=== PATIENT | female | born 1950 | race Hispanic/Latino ===

== ENCOUNTER 2019-11-02 20:48 | Inpatient (IN) | payer MEDICARE ==
[~2019-11-02] VITALS: Ht 170.2 cm; Wt 50.3 kg
[2019-11-02] MEDS ORDERED: SODIUM CHLORIDE 0.9% 1000ML 1,000 ML IV STA (20:54)
[2019-11-02 21:16] LABS: BASOPHILS % 0.3 % (0.0-1.0); EOSINOPHILS % 0.2 % (0.0-6.0); HEMATOCRIT 49.1 % (34.2-44.1); HEMOGLOBIN 16.8 g/dL (12.0-16.0); LYMPHOCYTES # (AUTO) 2.6 (1.0-3.2); LYMPHOCYTES % 20.9 % (18.0-39.1); MEAN CORPUSCULAR HEMOGLOBIN 30.1 pg (28-32); MEAN CORPUSCULAR HGB CONC 34.2 g/dL (31-35); MONOCYTES # (AUTO) 0.7 (0.2-0.8); MONOCYTES % 5.7 % (4.4-11.3); NEUTROPHILS % 72.5 % (38.7-80.0); PLATELET COUNT 189 x10e3/uL (140-360); RED BLOOD COUNT 5.58 x10e6/uL (3.6-5.1); RED CELL DISTRIBUTION WIDTH 12.6 % (11.7-14.4)
[2019-11-02 21:34] LABS: ALBUMIN 3.9 g/dL (3.5-5.0); ALBUMIN/GLOBULIN RATIO 1.3 (0.8-2.0); ANION GAP 20.3 mmol/L (8-16); CALCIUM 9.4 mg/dL (8.4-10.2); CREATININE, SERUM 3.14 mg/dL (0.57-1.11); POTASSIUM 4.3 mmol/L (3.5-5.1)
[2019-11-02 21:41] LABS: B-TYPE NATRIURETIC PEPTIDE2 57.4 pg/mL (0-100); CREATINE KINASE MB 3.1 ng/mL (0-5.0)
--- NOTE | 2019-11-02 21:45 | Diagnostic Imaging Report ---
EXAMINATION: CHEST SINGLE (PORTABLE) INDICATION: Hypotension, weakness. COMPARISON: None FINDINGS: TUBES and LINES: None. LUNGS: Hyperinflated lungs. Biapical pleural-parenchymal opacity with mild bronchiectasis. Focal left upper lung opacity. Patchy left lower lung opacity. PLEURA: No pleural effusion or pneumothorax. HEART AND MEDIASTINUM: The cardiomediastinal silhouette is unremarkable. There are atherosclerotic calcifications within the aorta. Coronary atherosclerosis.Status post CABG. BONES AND SOFT TISSUES: No acute osseous lesion. Soft tissues are unremarkable. UPPER ABDOMEN: No free air under the diaphragm. IMPRESSION: Emphysematous lungs with findings suggestive of remote granulomatous disease. Opacities in the left lung may represent pneumonia or atelectasis in the appropriate clinical setting. However given the focal appearance at the left upper lung, recommend chest CT or alternatively follow-up chest radiograph in 6-8 weeks to assess for resolution and exclude underlying lesion. Signed by: Dr. Liberty Bourgeois MD on 11/02/2019 9:42 PM
[2019-11-02 21:54] LABS: STREPTOCOCCUS GRP A ANTIGEN NEGATIVE (NEGATIVE)
[2019-11-02 22:04] LABS: INFLUENZAE A&B ANTIGEN (RAPID) NEGATIVE (NEGATIVE)
[2019-11-02] MEDS: PIPER-TAZ 3.375 GM 50 ML IV SCH (22:05)
[2019-11-02] MEDS ORDERED: SODIUM CHLORIDE 0.9% 1000ML 1,000 ML IV ONE (22:15)
--- OUTSIDE RECORDS SUMMARY | 2019-11-02 22:35 | XMS REPORT ---
Author Author [facility] Address Unknown Phone Unavailable Care Team Providers Care Station Detective Name Role Phone NORI KELLY Unavailable Unavailable Problems This patient has no known problems. Allergies, Adverse Reactions, Alerts This patient has no known allergies or adverse reactions. Medications This patient has no known medications. Encounters Start Date/Time End Date/Time Encounter Type Admission Type Attending [facility] Care Facility Care Department Encounter ID 2019-07-15 21:45:00 2019-07-15 21:45:00 Emergency E [facility] [id number] 2019-06-23 09:01:00 2019-06-23 09:01:00 Emergency E [facility] [id number] Results Test Description Test Time Test Comments Text Results Atomic Results Result Comments CHEST SINGLE (PORTABLE) 2019-11-02 21:37:00 [place] [address] Patient Name: JUN MNOTEZ MR #: [id number] : 1950 Age/Sex: 69/F Req #: [id number] Adm Physician: Ordered by: NORI KELLY DO Report #: [id number] Location: ER Room/Bed: Procedure: [id number] DX/CHEST SINGLE (PORTABLE) Exam Date: 11/02/19 Exam Time: 2109 REPORT STATUS: Signed EXAMINATION: CHEST SINGLE (PORTABLE) INDICATI ON: Hypotension, weakness. COMPARISON: None FINDINGS: TUBES and LINES: None. LUNGS: Hyperinflated lungs. Biapical pleural-parenchymal opacity with mild bronchiectasis. Focal left upper lung opacity. Patchy left lower lung opacity. PLEURA: No pleural effusion or pneumothorax. HEART AND MEDIASTINUM: The cardiomediastinal silhouette is unremarkable. There are atherosclerotic calcifications within the aorta. Coronary atherosclerosis.Status post CABG. BONES AND SOFT TISSUES: No acute osseous lesion. Soft tissues are unremarkable. UPPER ABDOMEN: No free air under the diaphragm. IMPRESSION: Emphysematous lungs with findings suggestive of remote granulomatous disease. Opacities in the left lung may represent pneumonia or atelectasis in the appropriate clinical setting. However given the focal appearance at the left upper lung, recommend chest CT or alternatively follow-up chest radiograph in 6-8 weeks to assess for resolution and exclude underlying lesion. Signed by: Dr. Della Whitney MD on 11/02/2019 9:42 PM Dictated By: DELLA WHITNEY MD 41 Transcribed By: ARDEN on 11/02/192141 COPY TO: NORI KELLY DO POC Glucose 2019-08-28 11:47:00 Glucose POC (test code=Glucose POC) 236 mg/dL 70-115 If you consider your patient critically ill, the Dmitry-Accu Check Infrom II meter should not be used for Glucose determination. Draw a venous Glucose and send to the main Lab for analysis. Hemoglobin [id number] 07:43:45* Test Item Value Reference Range Comments Hemoglobin A1c (test code=Hemoglobin A1c) 11.2 % 4.8-5.9 Non Diabetic 4.8-5.9%Diabetic <7.0% POC [id number] 07:29:30* Test Item Value Reference Range Comments Glucose POC (test code=Glucose POC) 238 mg/dL 70-115 If you consider your patient critically ill, the Dmitry-Accu Check Infrom II meter should not be used for Glucose determination. Draw a venous Glucose and send to the main Lab for analysis. POC [id number] 20:16:01* Test Item Value Reference Range Comments Glucose POC (test code=Glucose POC) 333 mg/dL 70-115 Notify RN or MDIf you consider your patient critically ill, the Dmitry-Accu Check Infrom II meter should not be used for Glucose determination. Draw a venous Glucose and send to the main Lab for analysis. Basic Metabolic [id number] 19:50:49* Test Item Value Reference Range Comments Sodium Level (test code=Sodium Level) 135.0 mmol/L 135.0-145.0 Potassium Level (test code=Potassium Level) 4.8 mmol/L 3.5-5.1 Chloride Level (test code=Chloride Level) 96 mmol/L 98-105 CO2 (test code=CO2) 24 mmol/L 22-29 Anion Gap (test code=Anion Gap) 15 mmol/L 7-16 BUN (test code=BUN) 14.70 mg/dL 8.00-23.00 Creatinine Level (test code=Creatinine Level) 0.60 mg/dL 0.50-0.90 BUN/Creat Ratio (test code=BUN/Creat Ratio) 24 Glucose Level (test code=Glucose Level) 407 mg/dL 70-115 Critical results called to Yassine Sigala at 08/27/2019 19:50:38 ELECT EQUIP MAINT ENG by [place]. Read back and verified? yes Calcium Level (test code=Calcium Level) 9.8 mg/dL 8.3-10.5 Basic Metabolic [id number] 19:50:49* Test Item Value Reference Range Comments Sodium Level (test code=Sodium Level) 135.0 mmol/L 135.0-145.0 Potassium Level (test code=Potassium Level) 4.8 mmol/L 3.5-5.1 Chloride Level (test code=Chloride Level) 96 mmol/L 98-105 CO2 (test code=CO2) 24 mmol/L 22-29 Anion Gap (test code=Anion Gap) 15 mmol/L 7-16 BUN (test code=BUN) 14.70 mg/dL 8.00-23.00 Creatinine Level (test code=Creatinine Level) 0.60 mg/dL 0.50-0.90 BUN/Creat Ratio (test code=BUN/Creat Ratio) 24 Glucose Level (test code=Glucose Level) 407 mg/dL 70-115 Critical results called to Yassine Sigala at 08/27/2019 19:50:38 ELECT EQUIP MAINT ENG by [place]. Read back and verified? yes Calcium Level (test code=Calcium Level) 9.8 mg/dL 8.3-10.5 eGFR AA (test code=eGFR AA) >60 mL/min/1.73 m2 eGFR (estimated Glomerular Filtration Rate) is an estimated value, calculated from the patient's serum creatinine using the MDRD equation. It is NOT the patient's actual GFR. The eGFR provides a more clinically useful measure of kidney disease than serum creatinine alone.This calculation takes sex and race into account, if the information is provided. If the race is not provided, and the patient is -Guyanese, multiply by 1.212. If sex is not provided, and the patient is female, multiply by 0.742. Results for patients <18 years of age have not been validated by the MDRD study and should be interpreted with caution. eGFR Result Interpretation:eGFR > or=60 is in the Normal RangeeGFR < 60 may mean kidney diseaseeGFR < 15 may mean kidney failure Ranges recommended by the National Kidney Foundation, http://nkdep.nih.gov eGFR Non-AA (test code=eGFR Non-AA) >60.00 mL/min/1.73 m2 eGFR (estimated Glomerular Filtration Rate) is an estimated value, calculated from the patient's serum creatinine using the MDRD equation. It is NOT the patient's actual GFR. The eGFR provides a more clinically useful measure of kidney disease than serum creatinine alone.This calculation takes sex and race into account, if the information is provided. If the race is not provided, and the patient is -[place]anese, multiply by 1.212. If sex is not provided, and the patient is female, multiply by 0.742. Results for patients <18 years of age have not been validated by the MDRD study and should be interpreted with caution. eGFR Result Interpretation:eGFR > or=60 is in the Normal RangeeGFR < 60 may mean kidney diseaseeGFR < 15 may mean kidney failure Ranges recommended by the National Kidney Foundation, http://nkdep.nih.gov Basic Metabolic [id number] 19:50:49* Test Item Value Reference Range Comments Sodium Level (test code=Sodium Level) 135.0 mmol/L 135.0-145.0 Potassium Level (test code=Potassium Level) 4.8 mmol/L 3.5-5.1 Chloride Level (test code=Chloride Level) 96 mmol/L 98-105 CO2 (test code=CO2) 24 mmol/L 22-29 Anion Gap (test code=Anion Gap) 15 mmol/L 7-16 BUN (test code=BUN) 14.70 mg/dL 8.00-23.00 Creatinine Level (test code=Creatinine Level) 0.60 mg/dL 0.50-0.90 BUN/Creat Ratio (test code=BUN/Creat Ratio) 24 Glucose Level (test code=Glucose Level) 407 mg/dL 70-115 Critical results called to Yassine Sigala at 08/27/2019 19:50:38 ELECT EQUIP MAINT ENG by [place]. Read back and verified? yes Calcium Level (test code=Calcium Level) 9.8 mg/dL 8.3-10.5 eGFR AA (test code=eGFR AA) >60 mL/min/1.73 m2 eGFR (estimated Glomerular Filtration Rate) is an estimated value, calculated from the patient's serum creatinine using the MDRD equation. It is NOT the patient's actual GFR. The eGFR provides a more clinically useful measure of kidney disease than serum creatinine alone.This calculation takes sex and race into account, if the information is provided. If the race is not provided, and the patient is -Guyanese, multiply by 1.212. If sex is not provided, and the patient is female, multiply by 0.742. Results for patients <18 years of age have not been validated by the MDRD study and should be interpreted with caution. eGFR Result Interpretation:eGFR > or=60 is in the Normal RangeeGFR < 60 may mean kidney diseaseeGFR < 15 may mean kidney failure Ranges recommended by the National Kidney Foundation, http://nkdep.nih.gov eGFR Non-AA (test code=eGFR Non-AA) >60.00 mL/min/1.73 m2 eGFR (estimated Glomerular Filtration Rate) is an estimated value, calculated from the patient's serum creatinine using the MDRD equation. It is NOT the patient's actual GFR. The eGFR provides a more clinically useful measure of kidney disease than serum creatinine alone.This calculation takes sex and race into account, if the information is provided. If the race is not provided, and the patient is -[place], multiply by 1.212. If sex is not provided, and the patient is female, multiply by 0.742. Results for patients <18 years of age have not been validated by the MDRD study and should be interpreted with caution. eGFR Result Interpretation:eGFR > or=60 is in the Normal RangeeGFR < 60 may mean kidney diseaseeGFR < 15 may mean kidney failure Ranges recommended by the National Kidney Foundation, http://nkdep.nih.gov Troponin [id number] 19:50:49* Test Item Value Reference Range Comments Troponin-T (test code=Troponin-T) 20.000 ng/L 0.000-14.000 Critical results called to Yassine Sigala at 08/27/2019 19:50:38 ELECT EQUIP MAINT ENG by [place]. Read back and verified? yesThe CV of the assay at 99th percentile for both male and female patient population is < 10%. A rise and fall in SACHA with at least one value above the 99th percentile with clinical evidence of myocardial ischemia would support a diagnosis of AMI. A delta of at least 20% is recommended to assess acute changes in results above the 99th percentile in serial measurements. Stable SACHA levels (<20%) delta above the 99th percentile URL would support a diagnosis of chronic myocardial injury. Troponin [id number] 17:35:06* Test Item Value Reference Range Comments Troponin-T (test code=Troponin-T) 17.190 ng/L 0.000-14.000 Critical results called to Tammy Luke at 08/27/2019 17:34:56 ELECT EQUIP MAINT ENG by [place]. Read back and verified? yesThe CV of the assay at 99th percentile for both male and female patient population is < 10%. A rise and fall in SACHA with at least one value above the 99th percentile with clinical evidence of myocardial ischemia would support a diagnosis of AMI. A delta of at least 20% is recommended to assess acute changes in results above the 99th percentile in serial measurements. Stable SACHA levels (<20%) delta above the 99th percentile URL would support a diagnosis of chronic myocardial injury. Complete Blood Count with [id number] 17:28:39* Test Item Value Reference Range Comments WBC (test code=WBC) 4.8 x10 4.4-10.5 RBC (test code=RBC) 3.84 x10 3.75-5.20 Hgb (test code=Hgb) 12.4 g/dL 12.2-14.8 MCV (test code=MCV) 96.40 fL 80.00-100.00 Hct (test code=Hct) 37.0 % 36.5-44.4 MCHC (test code=MCHC) 33.50 g/dL 32.00-37.50 RDW CV (test code=RDW CV) 14.5 % 11.5-14.5 MCH (test code=MCH) 32.3 pg 27.0-32.5 Platelets (test code=Platelets) 204.0 x10 140.0-440.0 MPV (test code=MPV) 11.5 fL Slide Review (test code=Slide Review) Auto Auto Result created by [email or web address] nRBC (test code=nRBC) 0 NRBC Abs (test code=NRBC Abs) 0.00 x10 IPF (test code=IPF) 0 % Automated [id number] 17:28:39* Test Item Value Reference Range Comments Neutro Auto (test code=Neutro Auto) 51.6 % 36.0-70.0 Lymph Auto (test code=Lymph Auto) 33.1 % 12.0-44.0 [place] Auto (test code=[place] Auto) 8.2 % 0.0-11.0 Eos, Auto (test code=Eos, Auto) 5.2 % 0.0-7.0 Basophil Auto (test code=Basophil Auto) 1.7 % 0.0-2.0 Neutro Absolute (test code=Neutro Absolute) 2.5 x10 1.6-7.4 Lymph Absolute (test code=Lymph Absolute) 1.58 x10 .50-4.60 [place] Absolute (test code=[place] Absolute) .39 x10 .00-1.20 Eos Absolute (test code=Eos Absolute) 0.25 x10 0.00-0.74 Baso Absolute (test code=Baso Absolute) 0.08 x10 0.00-0.21 IG [id number] 17:28:39* Test Item Value Reference Range Comments IG (test code=IG) 0.2 % 0.0-5.0 IG Abs (test code=IG Abs) 0 x10 POC [id number] 10:37:57* Test Item Value Reference Range Comments Glucose POC (test code=Glucose POC) 201 mg/dL 70-115 If you consider your patient critically ill, the Dmitry-Accu Check Infrom II meter should not be used for Glucose determination. Draw a venous Glucose and send to the main Lab for analysis. Troponin [id number] 07:50:42* Test Item Value Reference Range Comments Troponin-T (test code=Troponin-T) 21.650 ng/L 0.000-14.000 Critical results called to Bulmaro Soria at 08/27/2019 07:50:35 CST_ by jv_. Read back and verified? _yesThe CV of the assay at 99th percentile for both male and female patient population is < 10%. A rise and fall in SACHA with at least one value above the 99th percentile with clinical evidence of myocardial ischemia would support a diagnosis of AMI. A delta of at least 20% is recommended to assess acute changes in results above the 99th percentile in serial measurements. Stable SACHA levels (<20%) delta above the 99th percentile URL would support a diagnosis of chronic myocardial injury. XR Chest 1 View [id number] 05:14:10Patient: JUN MONTEZ Date/Time08/27/2019 04:15 CSTReason for ExamChest painReportLOCATION: [id number]: 69-year-old female with chest pain.COMMENT:The examination was obtained at the bedside at 4:04 a.m.The lungs are clear, and well-aerated. The cardiac silhouette, mark, and mediastinum are unremarkable. The skeleton and soft tissues are unremarkable. Median sternotomy wires are present.Cardiac monitoring leads are seen.IMPRESSION:Unremarkable portable examination of the chest. Final Dictated by: MD Falk Robert LDictated DT/TM: 08/27/2019 5:13 amSigned by: MD Falk Robert LSigned (Electronic Signature): 08/27/2019 5:14 amComprehensive Metabolic Panel 2019-08-27 04:37:55* Test Item Value Reference Range Comments Sodium Level (test code=Sodium Level) 138.0 mmol/L 135.0-145.0 Potassium Level (test code=Potassium Level) 4.3 mmol/L 3.5-5.1 Chloride Level (test code=Chloride Level) 97 mmol/L 98-105 CO2 (test code=CO2) 27 mmol/L 22-29 Anion Gap (test code=Anion Gap) 14 mmol/L 7-16 BUN (test code=BUN) 17.60 mg/dL 8.00-23.00 Creatinine Level (test code=Creatinine Level) 0.70 mg/dL 0.50-0.90 BUN/Creat Ratio (test code=BUN/Creat Ratio) 25 Glucose Level (test code=Glucose Level) 375 mg/dL 70-115 Calcium Level (test code=Calcium Level) 9.9 mg/dL 8.3-10.5 Alk Phos (test code=Alk Phos) 158 U/L 35-104 Bilirubin Total (test code=Bilirubin Total) 0.3 mg/dL 0.1-0.9 Albumin Level (test code=Albumin Level) 4.1 g/dL 3.5-5.2 Protein Total (test code=Protein Total) 7.8 g/dL 6.4-8.3 ALT (test code=ALT) 11 U/L 1-33 AST (test code=AST) 17 U/L 1-32 Globulin (test code=Globulin) 3.7 g/dL 2.9-3.1 A/G Ratio (test code=A/G Ratio) 1.1 ratio Pro B Natriuretic [id number] 04:37:55* Test Item Value Reference Range Comments NT-proBNP (test code=NT-proBNP) 637 pg/mL 0-124 Comprehensive Metabolic [id number] 04:37:55* Test Item Value Reference Range Comments Sodium Level (test code=Sodium Level) 138.0 mmol/L 135.0-145.0 Potassium Level (test code=Potassium Level) 4.3 mmol/L 3.5-5.1 Chloride Level (test code=Chloride Level) 97 mmol/L 98-105 CO2 (test code=CO2) 27 mmol/L 22-29 Anion Gap (test code=Anion Gap) 14 mmol/L 7-16 BUN (test code=BUN) 17.60 mg/dL 8.00-23.00 Creatinine Level (test code=Creatinine Level) 0.70 mg/dL 0.50-0.90 BUN/Creat Ratio (test code=BUN/Creat Ratio) 25 Glucose Level (test code=Glucose Level) 375 mg/dL 70-115 Calcium Level (test code=Calcium Level) 9.9 mg/dL 8.3-10.5 Alk Phos (test code=Alk Phos) 158 U/L 35-104 Bilirubin Total (test code=Bilirubin Total) 0.3 mg/dL 0.1-0.9 Albumin Level (test code=Albumin Level) 4.1 g/dL 3.5-5.2 Protein Total (test code=Protein Total) 7.8 g/dL 6.4-8.3 ALT (test code=ALT) 11 U/L 1-33 AST (test code=AST) 17 U/L 1-32 Globulin (test code=Globulin) 3.7 g/dL 2.9-3.1 A/G Ratio (test code=A/G Ratio) 1.1 ratio eGFR AA (test code=eGFR AA) >60 mL/min/1.73 m2 eGFR (estimated Glomerular Filtration Rate) is an estimated value, calculated from the patient's serum creatinine using the MDRD equation. It is NOT the patient's actual GFR. The eGFR provides a more clinically useful measure of kidney disease than serum creatinine alone.This calculation takes sex and race into account, if the information is provided. If the race is not provided, and the patient is -[place], multiply by 1.212. If sex is not provided, and the patient is female, multiply by 0.742. Results for patients <18 years of age have not been validated by the MDRD study and should be interpreted with caution. eGFR Result Interpretation:eGFR > or=60 is in the Normal RangeeGFR < 60 may mean kidney diseaseeGFR < 15 may mean kidney failure Ranges recommended by the National Kidney Foundation, http://nkdep.nih.gov Troponin [id number] 04:37:55* Test Item Value Reference Range Comments Troponin-T (test code=Troponin-T) 23.640 ng/L 0.000-14.000 Critical results called to Wander Irizarry at 08/27/2019 04:37:46 CST_ by [employer]_. Read back and verified? _yesThe CV of the assay at 99th percentile for both male and female patient population is < 10%. A rise and fall in SACHA with at least one value above the 99th percentile with clinical evidence of myocardial ischemia would support a diagnosis of AMI. A delta of at least 20% is recommended to assess acute changes in results above the 99th percentile in serial measurements. Stable SACHA levels (<20%) delta above the 99th percentile URL would support a diagnosis of chronic myocardial injury. Comprehensive Metabolic [id number] 04:37:55* Test Item Value Reference Range Comments Sodium Level (test code=Sodium Level) 138.0 mmol/L 135.0-145.0 Potassium Level (test code=Potassium Level) 4.3 mmol/L 3.5-5.1 Chloride Level (test code=Chloride Level) 97 mmol/L 98-105 CO2 (test code=CO2) 27 mmol/L 22-29 Anion Gap (test code=Anion Gap) 14 mmol/L 7-16 BUN (test code=BUN) 17.60 mg/dL 8.00-23.00 Creatinine Level (test code=Creatinine Level) 0.70 mg/dL 0.50-0.90 BUN/Creat Ratio (test code=BUN/Creat Ratio) 25 Glucose Level (test code=Glucose Level) 375 mg/dL 70-115 Calcium Level (test code=Calcium Level) 9.9 mg/dL 8.3-10.5 Alk Phos (test code=Alk Phos) 158 U/L 35-104 Bilirubin Total (test code=Bilirubin Total) 0.3 mg/dL 0.1-0.9 Albumin Level (test code=Albumin Level) 4.1 g/dL 3.5-5.2 Protein Total (test code=Protein Total) 7.8 g/dL 6.4-8.3 ALT (test code=ALT) 11 U/L 1-33 AST (test code=AST) 17 U/L 1-32 Globulin (test code=Globulin) 3.7 g/dL 2.9-3.1 A/G Ratio (test code=A/G Ratio) 1.1 ratio eGFR AA (test code=eGFR AA) >60 mL/min/1.73 m2 eGFR (estimated Glomerular Filtration Rate) is an estimated value, calculated from the patient's serum creatinine using the MDRD equation. It is NOT the patient's actual GFR. The eGFR provides a more clinically useful measure of kidney disease than serum creatinine alone.This calculation takes sex and race into account, if the information is provided. If the race is not provided, and the patient is -[place], multiply by 1.212. If sex is not provided, and the patient is female, multiply by 0.742. Results for patients <18 years of age have not been validated by the MDRD study and should be interpreted with caution. eGFR Result Interpretation:eGFR > or=60 is in the Normal RangeeGFR < 60 may mean kidney diseaseeGFR < 15 may mean kidney failure Ranges recommended by the National Kidney Foundation, http://nkdep.nih.gov eGFR Non-AA (test code=eGFR Non-AA) >60.00 mL/min/1.73 m2 eGFR (estimated Glomerular Filtration Rate) is an estimated value, calculated from the patient's serum creatinine using the MDRD equation. It is NOT the patient's actual GFR. The eGFR provides a more clinically useful measure of kidney disease than serum creatinine alone.This calculation takes sex and race into account, if the information is provided. If the race is not provided, and the patient is -[place], multiply by 1.212. If sex is not provided, and the patient is female, multiply by 0.742. Results for patients <18 years of age have not been validated by the MDRD study and should be interpreted with caution. eGFR Result Interpretation:eGFR > or=60 is in the Normal RangeeGFR < 60 may mean kidney diseaseeGFR < 15 may mean kidney failure Ranges recommended by the National Kidney Foundation, http://nkdep.nih.gov Prothrombin Time and [id number] 04:29:58* Test Item Value Reference Range Comments Prothrombin Time (test code=Prothrombin Time) 11.7 seconds 9.8-13.4 INR (test code=INR) 1.0 ratio 0.6-1.2 Partial Thromboplastin [id number] 04:29:58* Test Item Value Reference Range Comments Partial Thromboplastin Time (test code=Partial Thromboplastin Time) 31.00 seconds 24.39-37.25 Complete Blood Count with [id number] 04:22:56* Test Item Value Reference Range Comments WBC (test code=WBC) 8.2 x10 4.4-10.5 RBC (test code=RBC) 4.65 x10 3.75-5.20 Hgb (test code=Hgb) 14.2 g/dL 12.2-14.8 Hct (test code=Hct) 42.2 % 36.5-44.4 MCV (test code=MCV) 90.80 fL 80.00-100.00 MCHC (test code=MCHC) 33.60 g/dL 32.00-37.50 RDW CV (test code=RDW CV) 12.2 % 11.5-14.5 MCH (test code=MCH) 30.5 pg 27.0-32.5 Platelets (test code=Platelets) 326.0 x10 140.0-440.0 MPV (test code=MPV) 11.0 fL Slide Review (test code=Slide Review) Auto Auto Result created by [email or web address]_[email or web address] nRBC (test code=nRBC) 0 NRBC Abs (test code=NRBC Abs) 0.00 x10 IPF (test code=IPF) 0 % Automated [id number] 04:22:56* Test Item Value Reference Range Comments Neutro Auto (test code=Neutro Auto) 69.3 % 36.0-70.0 Lymph Auto (test code=Lymph Auto) 21.7 % 12.0-44.0 [place] Auto (test code=[place] Auto) 7.2 % 0.0-11.0 Eos, Auto (test code=Eos, Auto) 1.0 % 0.0-7.0 Basophil Auto (test code=Basophil Auto) 0.4 % 0.0-2.0 Neutro Absolute (test code=Neutro Absolute) 5.7 x10 1.6-7.4 Lymph Absolute (test code=Lymph Absolute) 1.79 x10 .50-4.60 [place] Absolute (test code=[place] Absolute) .59 x10 .00-1.20 Eos Absolute (test code=Eos Absolute) 0.08 x10 0.00-0.74 Baso Absolute (test code=Baso Absolute) 0.03 x10 0.00-0.21 IG [id number] 04:22:56* Test Item Value Reference Range Comments IG (test code=IG) 0.4 % 0.0-5.0 IG Abs (test code=IG Abs) 0 x10
--- OUTSIDE RECORDS SUMMARY | 2019-11-02 22:35 | XMS REPORT | Summary of Care ---
Author Author Hien Schaefer, Ai Organization Unknown Address Unknown Phone Unavailable Care Team Providers Care Operations Manager Assistant Name Role Phone JOHANNA Garibay, BARRON Unavailable Unavailable MARJORIE Garibay, YASHIRA Unavailable Unavailable HAILE Garibay, KASSRMeka Unavailable Unavailable Ai Stanford R.N. Unavailable Unavailable Unavailable Unavailable Functional Status Name Dates Details Functional status health issues are not documented Status: Name Dates Details Cognitive status health issues are not documented Status: Problems Name Dates Details Aftercare following surgery (V58.89, Z48.89) Status: Active Shingles (053.9, B02.9) Status: Active Hypertension (401.9, I10) Status: Active Shortness of breath on exertion (786.05, R06.02) Status: Active Chest wall pain (786.52, R07.89) Status: Active Acid reflux (530.81, K21.9) Status: Active Medications Name Dates Details Clopidogrel Bisulfate 75 MG Oral Tablet TAKE 1 TABLET DAILY Quantity: 90 POOSTI M.D., KASSRA Active TraMADol HCl - 50 MG Oral Tablet * Refills: 0 Active Gabapentin 300 MG Oral Capsule TAKE 1 CAPSULE 3 TIMES DAILY. * Quantity: 90 Refills: 0 BARRON SPENCER M.D. Active Atorvastatin Calcium 40 MG Oral Tablet TAKE 1 TABLET AT BEDTIME. * Quantity: 90 Refills: 3 CARMENOSTI M.D., KASSRA Active Docusate Sodium 100 MG Oral Capsule * Refills: 0 Active Tylenol with Codeine #3 300-30 MG Oral Tablet * Refills: 0 Active Furosemide 40 MG Oral Tablet TAKE 1 TABLET DAILY. * Quantity: 90 Refills: 3 POOSTI M.D., KASSRA Active Aspirin EC Low Dose 81 MG Oral Tablet Delayed Release TAKE 1 TABLET DAILY DIRECTED. * Quantity: 90 Refills: 3 POOSTI M.D., KASSRA * Start : 09-Jul-2016 Active Metoprolol Succinate ER 25 MG Oral Tablet Extended Release 24 Hour TAKE 1/2 TABLET DAILY. * Quantity: 45 Refills: 3 POOSTI Rohan.Yazmin., KASSRA * Start : 12-Jul-2016 Active Lisinopril 20 MG Oral Tablet TAKE 1 TABLET DAILY. * Quantity: 90 Refills: 3 POOSTI M.D., KASSRA * Start : 12-Jul-2016 Active Acetaminophen 325 MG Oral Tablet TAKE 1 TO 2 TABLETS EVERY 6 HOURS NEEDED. * Quantity: 40 Refills: 0 MARJORIE Garibay, YASHIRA * Start : 10-Nov-2016 Active Allergies and Adverse Reactions Name Dates Details No Known Drug Allergies (Allergy) Status: Active Past Medical History Name Dates Details History of Acute myocardial infarction (410.90, I21.9) Status: Resolved History of CAD (coronary artery disease) (414.00, I25.10) Status: Resolved History of Chronic systolic congestive heart failure (428.22, I50.22) Status: Resolved History of diabetes mellitus (V12.29, Z86.39) Status: Resolved History of herpes zoster (V12.09, Z86.19) Status: Resolved History of hyperlipidemia (V12.29, Z86.39) Status: Resolved History of osteoporosis (V13.59, Z87.39) Status: Resolved Procedures Procedure Dates Details History of CABG Completed History of Kidney Surgery Completed History of Cholelithotomy Completed Immunization Name Dates Details Immunizations not documented Family History Name Dates Details Family history of diabetes mellitus (V18.0, Z83.3) Comments: Family History Status: Active Family history of myocardial infarction (V17.3, Z82.49) Comments: Family History Status: Active Family history of hypertension (V17.49, Z82.49) Comments: Family History Status: Active Family history of CABG Comments: Family History Status: Active Family history of cerebrovascular accident (CVA) (V17.1, Z82.3) Comments: Family History Status: Active Social History Name Dates Details - Status: Name Dates Details Never smoker Vital Signs Date Test Result Details No Known Vitals to report Results Date Description Value Details Results not documented Plan of Care Name Dates Details Planned Observations Planned Goals not documented Planned Encounters Appointment; BARRON SPENCER M.D. On: 02-Nov-2017 14:00 Interventions Provided Discussion/Summary* Guideline Used: * Other: none used * Recommended Disposition: Please call back if any questions or concerns. * Action Taken: * Patient informed/educated about nurse line * Intended Caller Action: * Other: Speak with clinic staff regarding missed call * Additional Information: * Patient verbalized understandings of this call and agree to the recommended disposition at this time. Patient was also educated on nurse triage line use & encouraged to call back for symptom support or additional home care advice and/or go to the nearest Emergency Room or call 911 if patient condition has worsened to a medical emergency. Instructions Name Dates Details Instructions not documented Encounters Appointment; Shahriar Sosa M.D. Encounter Diagnosis: Problem not documented On: 05-Jul-2016 11:15 Appointment; BARRON SPENCER M.D. Encounter Diagnosis: Problem not documented On: 12-Jul-2016 15:40 Appointment; BARRON SPENCER M.D. Encounter Diagnosis: Problem not documented On: 10-Nov-2016 14:20 Appointment; BARRON SPENCER M.D. Encounter Diagnosis: Problem not documented On: 11-May-2017 13:40
--- NOTE | 2019-11-02 23:37 | Diagnostic Imaging Report ---
EXAM: CT Chest without contrast INDICATION: Left upper lung opacity. COMPARISON: Chest radiograph 11/02/2019. TECHNIQUE: Chest was scanned utilizing a multidetector helical scanner from the lung apex through the level of the adrenal glands without administration of IV contrast. Coronal and sagittal reformations were obtained. Routine protocol was performed. IV CONTRAST: 100 mL of Omnipaque 300 RADIATION DOSE: Total DLP: 347 mGy*cm Estimated effective dose: (DLP x 0.014 x size factor) mSv COMPLICATIONS: None FINDINGS: LINES/ TUBES: None. LUNGS AND AIRWAYS: Biapical pleural-parenchymal opacity, likely sequela of remote granulomatous disease. Mild peripheral predominant interstitial and dependent groundglass opacities, which may represent early fibrosis. Scattered bronchiectasis, for example in the left upper lobe with adjacent tree-in-bud and clustered nodules on series 3, image 44. Scattered solid nodules, for example a 6-mm nodule in the left upper lobe on series 3, image 22, a 4 mm left upper lobe nodule on image 30 PLEURA: The pleural spaces are clear. HEART AND MEDIASTINUM: The thyroid gland is normal. No mediastinal, hilar or axillary lymphadenopathy. Extensive coronary and aortic UPPER ABDOMEN: Limited non-contrast views of the upper abdomen. Extensive atherosclerotic calcifications of the upper abdomen. BONES: No acute osseous abnormality. No suspicious lytic or blastic lesions. Satisfactory post median sternotomy. Diffuse osteopenia. SOFT TISSUES: Unremarkable. IMPRESSION: Findings consistent with remote granulomatous disease and atypical mycobacterial infection. Dependent predominant reticular and groundglass opacities, likely early fibrosis and/or atelectasis. Infectious processes considered less likely given clinical scenario. Scattered solid nodules, measuring up to 6 mm. Recommend follow-up chest CT in 6 months. Signed by: Dr. Liberty Bourgeois MD on 11/02/2019 11:33 PM
[2019-11-02 23:40] LABS: CLARITY,URINE CLEAR (CLEAR)
[2019-11-02 23:41] LABS: BILIRUBIN,URINE MODERATE (NEGATIVE); KETONES,URINE TRACE (NEGATIVE); LEUKOCYTE ESTERASE ,URINE NEGATIVE (NEGATIVE); NITRITE,URINE NEGATIVE (NEGATIVE); PROTEIN,URINE DIPSTICK 2+ (NEGATIVE); URINE UROBILINOGEN 0.2 mg/dL (0.2 - 1)
[2019-11-02 23:42] LABS: BACTERIA,URINE MODERATE /HPF; COLOR,URINE AMBER (YELLOW); EPITHELIAL CELLS,URINE MODERATE /LPF
[2019-11-02 23:55] VITALS: BP 110/61
--- NOTE | 2019-11-02 23:55 | NUR ---
Patient received to room 206 via stretcher from the emergency room. vss. no c/o pain noted. ivf infusing without difficulty. patient awake and alert x 1-2. Patient confused to place and time. Patient frequently repeats things. patient unable to give family history at this time. when patient was ask who she lives with she says, " My daughter Opal Goldman. " Per medical record [facility]. No family noted at the bedside. admit assessment complete and patients history taken from the chart. Call rangel placed within reach and bed alarm is on for safety. Patient instructed to call for assistance when needed. Close monitoring continues.
[2019-11-03] VITALS (8 sets, daily range): BP systolic 89–130; BP diastolic 56–66
[2019-11-03] MEDS ORDERED: DEXTROSE 50% SYRINGE 50 ML IV PRN
[2019-11-03] MEDS: SODIUM CHLORIDE 0.9% 1000ML 1,000 ML IV SCH ×3 (00:58→18:32)
[2019-11-03] MEDS ORDERED: PLAVIX75 MG PO (02:31)
[2019-11-03] MEDS ORDERED: ATORVASTATIN CA20 MG PO (02:31)
[2019-11-03] MEDS ORDERED: FARXIGA10 MG PO (02:31)
[2019-11-03] MEDS ORDERED: AMLODIPINE BESYL5 MG PO (02:31)
[2019-11-03] MEDS ORDERED: ARICEPT5 MG PO (02:31)
[2019-11-03] MEDS ORDERED: FOLIC ACID0.4 MG PO (02:33)
[2019-11-03] MEDS ORDERED: METFORMIN HCL500 MG PO (02:43)
[2019-11-03] MEDS ORDERED: METOPROLOL SUCC25 MG PO (02:43)
[2019-11-03] MEDS ORDERED: MULTIVITAMINS1 EAC6 PO (02:43)
[2019-11-03] MEDS ORDERED: LISINOPRIL-HCT1 EACH PO (02:43)
[2019-11-03] MEDS ORDERED: NAMENDA10 MG PO (02:45)
[2019-11-03] MEDS ORDERED: TRADJENTA5 MG PO (02:46)
[2019-11-03] MEDS ORDERED: TRAZODONE HCL50 MG PO (02:48)
[2019-11-03] MEDS ORDERED: ACETAMINOPHEN325 M1 PO (02:51)
[2019-11-03] MEDS ORDERED: ZOFRAN8 MG PO (02:52)
[2019-11-03] MEDS: PIPER-TAZ 3.375 GM 50 ML IV SCH ×3 (05:18→18:32)
--- NOTE | 2019-11-03 05:30 | NUR ---
patient ambulates to bathroom with assistance without difficulty. no c/o pain noted. ivf continue to infuse without difficulty.
[2019-11-03 06:14] LABS: BASOPHILS % 0.3 % (0.0-1.0); EOSINOPHILS # (AUTO) 0.1 (0.0-0.4); EOSINOPHILS % 0.6 % (0.0-6.0); HEMATOCRIT 44.6 % (34.2-44.1); HEMOGLOBIN 14.9 g/dL (12.0-16.0); LYMPHOCYTES # (AUTO) 3.1 (1.0-3.2); LYMPHOCYTES % 24.6 % (18.0-39.1); MEAN CORPUSCULAR HGB CONC 33.4 g/dL (31-35); MEAN CORPUSCULAR VOLUME 89.7 fL (81-99); MONOCYTES # (AUTO) 0.7 (0.2-0.8); MONOCYTES % 5.5 % (4.4-11.3); NEUTROPHILS # (AUTO) 8.6 (2.1-6.9); NEUTROPHILS % 68.6 % (38.7-80.0); PLATELET COUNT 151 x10e3/uL (140-360); RED BLOOD COUNT 4.97 x10e6/uL (3.6-5.1); RED CELL DISTRIBUTION WIDTH 12.7 % (11.7-14.4)
[2019-11-03 06:43] LABS: ALBUMIN 3.3 g/dL (3.5-5.0); ALBUMIN/GLOBULIN RATIO 1.3 (0.8-2.0); ANION GAP 16.8 mmol/L (8-16); CALCIUM 8.5 mg/dL (8.4-10.2); CREATININE, SERUM 1.8 mg/dL (0.57-1.11); POTASSIUM 3.8 mmol/L (3.5-5.1)
[2019-11-03] MEDS: INSULIN REGULAR, HUMAN 100 UNIT/1 ML 3ML VIAL SQ SCH ×4 (07:30→20:40)
[2019-11-03] MEDS ORDERED: ONDANSETRON HCL 4 MG ORAL DISINTEGRATING TAB PO PRN (09:15)
--- NOTE | 2019-11-03 10:58 | History and Physical ---
CHIEF COMPLAINT: Sent from a senior care for hypoxemia and hypotension. HISTORY OF PRESENT ILLNESS: The patient cannot give me much history and I do not see much ER records from the hospital and most of the history I got from the nurse. The patient says she is doing okay. She is not crazy. She is not sure why she is here, cannot get much history from her either. She is a 69-year-old female with a history of CVA, hypertension, diabetes mellitus, hyperlipidemia, coronary artery disease, and was admitted initially at [facility]. She says she is doing okay. She does not complain anything and she does not have any symptoms. REVIEW OF SYSTEMS: Limited because of patient's dementia. PAST MEDICAL HISTORY: 1. Hypertension. 2. Dementia. 3. Diabetes mellitus. 4. Hyperlipidemia. 5. Coronary artery disease. ALLERGIES: NONE. SOCIAL HISTORY: She says she does not smoke or drink or use any drugs. PAST SURGICAL HISTORY: Bypass surgery and cholecystectomy. PHYSICAL EXAMINATION: GENERAL: Elderly female. VITAL SIGNS: Her temperature is 98.1, pulse is 68, respirations 18, and blood pressure is 99/70. HEENT: PERRLA. NECK: Supple. No lymphadenopathy. No bruits. CHEST: Equal air entry bilaterally. No other sounds. CVS: S1, S2 normal. ABDOMEN: Scaphoid, soft, nontender. No organomegaly. EXTREMITIES: There is no edema. LAV CREWMAN: She is awake and alert. Oriented x1 to 2. She says she is at [facility] and she can move all 4 limbs. LABORATORY DATA: Shows a sodium of 142, CO2 of 21, BUN is 83, creatinine 1.8, it has improved from 107 of BUN and creatinine of 3.14 and her glucose is 88 and albumin is 3.3. WBC count was 12.4, hemoglobin 14, hematocrit 44, platelet count 151,000. Urinalysis suggestive of UTI and blood cultures are pending. Throat culture is pending. Chest x-ray showing opacities in the left lung, represent pneumonia, atelectasis, and they did a CT of the chest, which showing consistent with remote granulomatous disease, atypical mycobacterial infection, dependent predominant reticular ground glass opacities, maybe early fibrosis atelectasis. Scattered solid nodules 6 mm. They recommended repeat CT in 6 months. ASSESSMENT: 1. Hypotension, probably secondary to underlying urinary tract infection and blood pressure is on the lower side, continue with IV fluids and hold all the blood pressure medication and continue with IV antibiotics. 2. Acute kidney injury. I will get a renal ultrasound done and hold her CRESCENCIO inhibitor, diuretics, and Farxiga. Abnormal CT with lung nodule, probably needs to be followed up in [address] 3. Dementia. 4. Coronary artery disease. Dr. Rosales to follow this patient tomorrow. MD ALEJANDRA Benson/MODL /[id number]
--- NOTE | 2019-11-03 16:45 | Consultation ---
DATE OF CONSULTATION: Ms. Susi Giraldo is known to me from before. HISTORY OF PRESENT ILLNESS: This is a 69-year-old who does not provide any further information. She does have history of dementia, hypertension, diabetes mellitus, neuropathy, hyperlipidemia, coronary artery disease, multiple admission. The patient comes from a senior care with shortness of breath and low blood pressure. The patient who is confused, does not seem to be an acute distress at present time. PAST MEDICAL HISTORY: Hypertension, diabetes mellitus, neuropathy, hyperlipidemia, coronary artery disease. PAST SURGICAL HISTORY: Bypass surgery, cholecystectomy. SOCIAL HISTORY: There is no smoking, drug abuse or alcohol abuse. From senior care. FAMILY HISTORY: Diabetes mellitus, hypertension. REVIEW OF SYSTEMS: Could not be obtained. She is confused, but pleasant. LABORATORY DATA: Blood culture is pending. Urine culture is pending. Her white count when she first came was 12.42, hemoglobin 16.8. Influenza was negative. The urine was moderate WBC, moderate nitrite. She had a chest x-ray and chest CT. Chest CT showed finding consistent with remote granulomatous disease or typical Mycobacterium infection type of picture. PHYSICAL EXAMINATION: GENERAL: She is currently alert, confused. VITAL SIGNS: Stable, afebrile since admission. HEENT: Not icteric. NECK: Supple. CHEST: Few crackles. COR: S1, S2. ABDOMEN: Soft. IMPRESSION: 1. Altered mental status, concerned about sepsis on admission. 2. Urinary tract infection versus aspiration. Agree with Zosyn. Agree with blood cultures and urine cultures. 3. Dementia. 4. Coronary artery disease. 5. Diabetes mellitus. 6. We will follow with you. MD JOSE Mccoy/SANIYA /[id number]
[2019-11-03] MEDS: MEMANTINE 10 MG TAB PO SCH (18:32)
--- NOTE | 2019-11-03 18:44 | Diagnostic Imaging Report ---
EXAM: Renal Ultrasound INDICATION: ^nubia COMPARISON: None TECHNIQUE: Transverse and longitudinal images of the kidneys and bladder were obtained. FINDINGS: Right Kidney: Length: 11.6 cm Appearance: Normal echogenicity. Collecting system: No hydronephrosis. Nonspecific small amount of fluid adjacent to the right kidney. Stones: None Cyst/Mass: None Left Kidney: Length: 11.2 cm Appearance: Normal echogenicity. Collecting system: No hydronephrosis Stones: None Cyst/Mass: None Bladder: Collapse. IMPRESSION: Nonspecific small amount of right perinephric fluid, otherwise, normal renal ultrasound exam. Signed by: Dr. Zulay Reyes M.D. on 11/03/2019 6:41 PM
--- NOTE | 2019-11-03 19:00 | NUR ---
RECEIVED PATIENT IN BEDSIDE SHIFT REPORT. PATIENT RESTING IN BED AT THIS TIME. NO PAIN REPORTED. NO S&S OF DISTRESS NOTED. PATIENT A&OX1-2, WITH PERIODS OF CONFUSION, OFTEN REPEATS QUESTIONS AND STATEMENTS. PATIENT ASSISTED TO RESTROOM AND BACK IN BED. BED ALARM ACTIVE. BED LOCKED IN LOWEST POSITION, SIDE RAILS UPX2, CALL LIGHT IN REACH.
[2019-11-03] MEDS: ATORVASTATIN 40 MG TAB PO SCH (21:00)
[2019-11-03] MEDS: TRAZODONE HCL 50 MG TAB PO SCH (21:22)
[2019-11-03] MEDS: DONEPEZIL HCL 5 MG TAB PO SCH (21:22)
[2019-11-03] MEDS: ACETAMINOPHEN 325 MG TAB PO PRN (23:11)
[2019-11-04] VITALS (8 sets, daily range): BP systolic 133–176; BP diastolic 67–91
[2019-11-04] MEDS: PIPER-TAZ 3.375 GM 50 ML IV SCH ×4 (00:41→17:32)
[2019-11-04] MEDS: SODIUM CHLORIDE 0.9% 1000ML 1,000 ML IV SCH ×3 (04:23→17:39)
[2019-11-04 07:06] LABS: ANION GAP 17.6 mmol/L (8-16); BLOOD UREA NITROGEN 36 mg/dL (7-26); BUN/CREATININE RATIO 47 (6-25); CALCIUM 8.4 mg/dL (8.4-10.2); CARBON DIOXIDE 19 mmol/L (22-29); CHLORIDE 109 mmol/L (98-107); CREATININE, SERUM 0.76 mg/dL (0.57-1.11); EST GLOMERULAR FILTRATION RATE > 60 ML/MIN (60-); GLUCOSE 63 mg/dL (74-118); POTASSIUM 3.6 mmol/L (3.5-5.1); SODIUM 142 mmol/L (136-145)
[2019-11-04] MEDS: INSULIN REGULAR, HUMAN 100 UNIT/1 ML 3ML VIAL SQ SCH ×4 (07:30→20:51)
[2019-11-04] MEDS: FOLIC ACID 1 MG TAB PO SCH (09:38)
[2019-11-04] MEDS: CLOPIDOGREL BISULFATE 75 MG TAB PO SCH (09:38)
[2019-11-04] MEDS: MEMANTINE 10 MG TAB PO SCH ×2 (09:38→17:32)
[2019-11-04] MEDS: MULTIVITAMINS/MINERALS TAB PO SCH (09:38)
--- NOTE | 2019-11-04 19:00 | NUR ---
RECEIVED PATIENT IN BEDSIDE SHIFT REPORT. PATIENT RESTING IN BED AT THIS TIME. NO PAIN REPORTED. NO S&S OF DISTRESS NOTED. BED ALARM ACTIVE. BED LOCKED IN LOWEST POSITION, SIDE RAILS UPX2, CALL LIGHT IN REACH.
[2019-11-04] MEDS: ATORVASTATIN 40 MG TAB PO SCH (21:00)
[2019-11-04] MEDS: DONEPEZIL HCL 5 MG TAB PO SCH (22:08)
[2019-11-04] MEDS: TRAZODONE HCL 50 MG TAB PO SCH (22:08)
[2019-11-05] VITALS (8 sets, daily range): BP systolic 120–152; BP diastolic 68–91
[2019-11-05] MEDS: ACETAMINOPHEN 325 MG TAB PO PRN ×2 (00:31→19:09)
[2019-11-05] MEDS: PIPER-TAZ 3.375 GM 50 ML IV SCH ×2 (00:49→06:00)
[2019-11-05] MEDS: SODIUM CHLORIDE 0.9% 1000ML 1,000 ML IV SCH ×3 (01:00→21:00)
--- NOTE | 2019-11-05 07:00 | NUR ---
Received patient lying in bed with eyes open. Respiration even and unlabored without SOB. Call light in reach.
[2019-11-05] MEDS: INSULIN REGULAR, HUMAN 100 UNIT/1 ML 3ML VIAL SQ SCH ×4 (07:30→20:33)
[2019-11-05] MEDS: MULTIVITAMINS/MINERALS TAB PO SCH (08:28)
[2019-11-05] MEDS: MEMANTINE 10 MG TAB PO SCH ×2 (08:28→16:42)
[2019-11-05] MEDS: FOLIC ACID 1 MG TAB PO SCH (08:28)
[2019-11-05] MEDS: CLOPIDOGREL BISULFATE 75 MG TAB PO SCH (08:29)
--- NOTE | 2019-11-05 10:49 | Progress Note ---
DATE: 11/05/2019 SUBJECTIVE: Ms. Goldman is a 69-year-old female admitted with an altered mental status. The patient is seen and evaluated. REVIEW OF SYSTEMS: No nausea, vomiting, fever, chills, chest pain, shortness of breath, headache, rash, dysuria. PHYSICAL EXAMINATION: VITAL SIGNS: Temperature 97.3, the patient is afebrile since admission, pulse is 59, respiration 18, and blood pressure 144/70. MEDICATIONS: Medication list reviewed. As far as Infectious Disease point of view, the patient is on Zosyn. ALLERGIES: NO KNOWN ALLERGIES. LABORATORY STUDIES: White blood cells 12.49, hemoglobin 14.9, platelet 151. Creatinine of 0.76, improved from 3.14. Microbiology; 11/02/2019 blood culture negative so far, 11/02/2019 throat culture showed usual respiratory myrna, and 11/03/2019 urine cultures negative 48 hours. RADIOLOGY STUDIES: During her ultrasound, found a specific small amount of right perinephric fluid, otherwise normal renal ultrasound. She had a CT of the chest that showed consistent with remote granulomatous disease and atypical mycobacterial infection. Also dependent predominant reticular and ground-glass opacity, likely early fibrosis and/or atelectasis, infection process considered less likely given clinical scenario. ASSESSMENT AND PLAN: 1. Altered mental status. Microbiology studies negative. Radiology studies as above. 2. Leukocytosis. No significant change. 3. Dementia. 4. Coronary artery disease. 5. Diabetes mellitus. 6. Acute kidney injury-resolved. Continue with Zosyn and monitor the patient clinically. Follow up with the labs. Also a copy of the vitals and labs placed in the chart. Dictated by Milton Nur PA-C (Al) Chidi Ceja MD /MODL /[id number]
--- NOTE | 2019-11-05 10:53 | NUR ---
Pt sleeping soundly and no family present. Upholstery Estimator left a card describing availability of lock tender and instructions on how to contact a lock tender. ALICIA DOUGLAS Upholstery Estimator Spiritual Care Department O: [phone]
--- NOTE | 2019-11-05 13:05 | Progress Note ---
DATE: 11/04/2019 SUBJECTIVE: The patient is alert, but confused, does not seem to be in acute distress. OBJECTIVE: VITAL SIGNS: Stable, afebrile. HEENT: She is not icteric. NECK: Supple. CHEST: Few crackles bilateral. HEART: S1 and S2. No S3, S4, or murmur. ABDOMEN: Soft. Bowel sounds present. No tenderness. EXTREMITIES: No edema. SKIN: No rash. LABORATORY DATA: Her blood cultures are negative. Urine culture is negative. Her white count is still about the same at 12.49. IMPRESSION: Altered mental status. From Infectious Disease point of view, the patient is stable. Continue as ordered. We will follow. MD JOSE Mccoy/MODJessica /[id number]
--- NOTE | 2019-11-05 16:56 | Diagnostic Imaging Report ---
EXAMINATION: CHEST SINGLE (PORTABLE) INDICATION: Urinary tract infection COMPARISON: Chest radiograph 11/02/2019, chest CT 11/02/2019 FINDINGS: LINES/TUBES:EKG leads overlie the chest. LUNGS:The lungs are well-inflated. PLEURA:No focal consolidation. Biapical pleural parenchymal thickening/scarring. Pulmonary nodules seen on prior chest CT are beyond the resolution of this radiograph. MEDIASTINUM:The cardiomediastinal silhouette appears unchanged in size and shape. Atherosclerotic calcifications of the thoracic aorta. BONES/SOFT TISSUES:No acute osseous injury. ABDOMEN:No free air under the diaphragm. IMPRESSION: No significant interval change. Signed by: Marcela Dyer MD on 11/05/2019 4:53 PM
--- NOTE | 2019-11-05 19:10 | NUR ---
Report given to maintenance technician 3rd shift. Respiration even and unlabored without SOB. Call light in reach.
--- NOTE | 2019-11-05 21:27 | Consultation ---
DATE OF CONSULTATION: 11/05/2019 GI Consult Note REASON FOR CONSULT: Dysphagia, vomiting. HISTORY OF PRESENTING ILLNESS: A 69-year-old female with a history of hypertension, type 2 diabetes, hyperlipidemia, coronary artery disease, who looks like have early dementia. [facility], found to have urosepsis. Currently being treated with antibiotic. ID is following. When I asked the patient, then she says that she does not live in penitentiary, she has her own apartment. She cooks herself. She eats herself. She does not have any problem. Occasionally, she has some sore throat. She has no trouble swallowing food. She is swallowing her pills. She sometimes do not feel like eating. She is categorically refusing any GI issues. REVIEW OF SYSTEMS: Unobtainable, however, positive pertinent as per HPI. The patient is not too much interested in talking. PAST MEDICAL HISTORY: Hypertension, dementia, type 2 diabetes, hyperlipidemia, coronary artery disease. PAST SURGICAL HISTORY: Cholecystectomy. There is a documented history of cardiac bypass surgery. FAMILY HISTORY: Noncontributory. SOCIAL HISTORY: No smoking, alcohol, or any illicit drug use. assisted resident. However, when you talk to the patient, she says she lives at home, she has her own apartment. ALLERGIES: NO KNOWN DRUG ALLERGIES. HOME MEDICATION: Acetaminophen, amlodipine, atorvastatin, clopidogrel, Farxiga, donepezil, folic acid, linagliptin, lisinopril/hydrochlorothiazide, memantine, metformin, metoprolol, multivitamin, Zofran, trazodone. INPATIENT MEDICATION: Reviewed as per MAR. PHYSICAL EXAMINATION: VITAL SIGNS: Temperature 98, pulse 57, respirations 19, blood pressure 137/81, oxygen saturation 98% on room air. GENERAL: Not in any acute distress. HEENT: Oral mucosa is moist. Anicteric sclerae. CVS: S1, S2. Regular. LUNGS: Bilaterally grossly clear. ABDOMEN: Soft, nondistended, nontender. No palpable mass or hernia. Positive bowel sounds. EXTREMITIES: Warm. No leg edema. LABORATORY DATA: WBC 12.49, hemoglobin 14. The last blood draw was on 11/03/2019. WBC 12.49, hemoglobin 14.9, hematocrit 44.6, MCV 89.7, and platelet count 151. Sodium 142, potassium 3.6, chloride 109, bicarb 19, BUN 36, creatinine 0.76. Urinalysis showed rbc's 11 to 20, wbc's 6 to 10. Urine culture, no growth in 48 hours. Throat culture, negative. Blood culture, negative. IMPRESSION: The patient denies any dysphagia. She is just eating slowly. PLAN: From GI standpoint, I do not see any active GI issues at this time. Continue present medical management. Watch for any choking or coughing while swallowing the food. I have instructed a nurse to observe her while eating. Saman Slater MD SA/SANIYA /[id number]
[2019-11-05] MEDS: DONEPEZIL HCL 5 MG TAB PO SCH (22:00)
[2019-11-05] MEDS: ATORVASTATIN 40 MG TAB PO SCH (22:00)
[2019-11-05] MEDS: TRAZODONE HCL 50 MG TAB PO SCH (22:00)
--- NOTE | 2019-11-05 22:00 | NUR ---
PATIENT RESTING IN BED, SIGNS OF CONFUSION IS NOTED BUT IS ALERT. IV HAS BEEN DISLODGED AND A NEW ONE WILL BE STARTED PROMPTLY, PATIENT VOICES NO PAIN AT THIS TIME. PATIENT SWALLOWS MEDICATION WELL, NO SIGNS OF DIFFICULTY SWALLOWING NOTED. BED IS IN LOWEST POSITION, BOTH SIDE RAILS ARE UP, BED ALARM IS ON, CALL LIGHT IS WITHIN EASY REACH, WILL CONTINUE TO MONITOR.
--- NOTE | 2019-11-05 22:35 | NUR ---
PATIENT BECAME UPSET WHEN ATTEMPTING TO START NEW IV. COMPLAINED OF PAIN IN BOTH ARMS AND WISHED NOT TO HAVE ONE PLACED AT THIS TIME. WILL ATTEMPT AT ANOTHER TIME.
[2019-11-06] VITALS (8 sets, daily range): BP systolic 128–137; BP diastolic 63–96
[2019-11-06 05:32] LABS: BASOPHILS % 0.3 % (0.0-1.0); EOSINOPHILS # (AUTO) 0.1 (0.0-0.4); HEMATOCRIT 38.4 % (34.2-44.1); HEMOGLOBIN 13.5 g/dL (12.0-16.0); LYMPHOCYTES # (AUTO) 2.3 (1.0-3.2); LYMPHOCYTES % 23.5 % (18.0-39.1); MEAN CORPUSCULAR HEMOGLOBIN 30.2 pg (28-32); MEAN CORPUSCULAR HGB CONC 35.2 g/dL (31-35); MEAN CORPUSCULAR VOLUME 85.9 fL (81-99); MONOCYTES # (AUTO) 0.6 (0.2-0.8); MONOCYTES % 6.4 % (4.4-11.3); NEUTROPHILS # (AUTO) 6.7 (2.1-6.9); NEUTROPHILS % 68.3 % (38.7-80.0); PLATELET COUNT 117 x10e3/uL (140-360); RED BLOOD COUNT 4.47 x10e6/uL (3.6-5.1); RED CELL DISTRIBUTION WIDTH 12.4 % (11.7-14.4)
[2019-11-06] MEDS: SODIUM CHLORIDE 0.9% 1000ML 1,000 ML IV SCH ×2 (07:00→18:07)
--- NOTE | 2019-11-06 07:12 | NUR ---
Received patient lying in bed with eyes closed. Respiration even and unlabored without SOB. Call light in reach.
[2019-11-06] MEDS: INSULIN REGULAR, HUMAN 100 UNIT/1 ML 3ML VIAL SQ SCH ×4 (07:30→21:00)
[2019-11-06] MEDS: MEMANTINE 10 MG TAB PO SCH ×2 (08:17→18:07)
[2019-11-06] MEDS: CLOPIDOGREL BISULFATE 75 MG TAB PO SCH (08:17)
[2019-11-06] MEDS: MULTIVITAMINS/MINERALS TAB PO SCH (08:17)
[2019-11-06] MEDS: FOLIC ACID 1 MG TAB PO SCH (08:17)
[2019-11-06] MEDS: ACETAMINOPHEN 325 MG TAB PO PRN (10:08)
--- NOTE | 2019-11-06 10:20 | Progress Note ---
DATE: Infectious Disease SUBJECTIVE: The patient was seen and evaluated with the nurse in her room. The patient remains confused without acute distress. REVIEW OF SYSTEMS: No complaints and gets agitated when asked too many questions, otherwise seems to be comfortable in bed. Discussed with the nurse. No new events. OBJECTIVE: VITAL SIGNS: Temperature is 97.2. The patient has been afebrile the entire hospital stay with a pulse of 60, respirations 16, blood pressure 128/76. GENERAL: Comfortable in bed, no acute distress. CV: S1, S2. CHEST: Equal expansion. Clear to auscultation. No acute distress. ABDOMEN: Soft and nontender. No distention. HEENT: Moist. No pallor. No JVD. EXTREMITIES: Moves all. No edema. MEDICATION: Medication list reviewed. As far as Infectious Disease point of view, patient is off antibiotics, last time received was yesterday. LABORATORY STUDIES: Influenza A and B antigen and group A strep screen were negative. White count improved to 9.74 from 12.49, hemoglobin 13.5, platelet count of 117 dropped from 151. No new BMP available. Last creatinine of 11/05/2019 was 0.76, which had improved from 3.14 on admission. MICROBIOLOGY: Urine culture, throat culture and blood culture all negative. As far as, radiology studies; chest x-ray from yesterday showed no significant change. ASSESSMENT AND PLAN: This is a 69-year-old female who was admitted with altered mental status and acute renal failure. Renal function has returned back to normal as far as a creatinine level. Microbiology studies and radiology studies negative so far. The patient afebrile throughout the stay, antibiotic stopped yesterday. White counts return back to normal. There is no active GI issues noted by GI specialty. Other medical conditions includin. Dementia. 2. Coronary artery disease. 3. Diabetes mellitus. Continue to monitor patient off antibiotics. Please refer to the chart for more information. This case was discussed with Dr. Ceja in detail. Dictated by Milton Nur PA-C (Al) Chidi Ceja MD /MODL /[id number]
--- NOTE | 2019-11-06 11:10 | NUR ---
FAXED CLINICALS TO [facility] FOR PT TO BE ABLE TO RETURN TO UNIT.
--- NOTE | 2019-11-06 15:06 | Progress Note ---
DATE: 11/06/2019 SUBJECTIVE: The patient is not feeling hungry, however, she denies any trouble swallowing. She was able to swallow few bites of chicken in the lunch today. Denies any abdominal pain. She has had one good bowel movement today. REVIEW OF SYSTEMS: GENERAL: Easy fatigability and generalized weakness. CVS: No chest pain or palpitation. RESPIRATORY: No cough or expectoration. MEDICATIONS: Reviewed as per SEP. PHYSICAL EXAMINATION: VITAL SIGNS: Temperature 97.1, pulse 54, respirations 16, blood pressure 137/63, and oxygen saturation 98% on room air. GENERAL: Not in any acute distress. Oral mucosa is moist. ABDOMEN: Soft, nondistended, nontender. No mass or hernia. Positive bowel sounds. LABORATORY DATA: WBC 9.74, hemoglobin 13.5, hematocrit 38.4, and platelet count 117. IMPRESSION: 1. No dysphagia. 2. Anorexia, look for non-GI causes of lack of appetite. 3. Thrombocytopenia, Hematology consult. PLAN: Continue present medical management. I advised the nurse to follow her especially when she is swallowing food or drinking liquids. Saman Slater MD SA/SANIYA /[id number] MTDD
--- NOTE | 2019-11-06 19:12 | NUR ---
Report given to shift mechanic. Respiration even and unlabored without SOB. Call light in reach.
[2019-11-06] MEDS: DONEPEZIL HCL 5 MG TAB PO SCH ×2 (21:00→22:37)
[2019-11-06] MEDS: TRAZODONE HCL 50 MG TAB PO SCH (22:00)
[2019-11-06] MEDS: ATORVASTATIN 40 MG TAB PO SCH (22:00)
--- NOTE | 2019-11-06 22:00 | NUR ---
PATIENT RESTING IN BED, SIGNS OF CONFUSION IS NOTED BUT IS ALERT. IV FLUIDS ARE RUNNING AT ORDERED RATE AND PATIENT VOICES NO PAIN AT THIS TIME. PATIENT SWALLOWS MEDICATION WELL, NO SIGNS OF DIFFICULTY SWALLOWING NOTED. BED IS IN LOWEST POSITION, BOTH SIDE RAILS ARE UP, BED ALARM IS ON, CALL LIGHT IS WITHIN EASY REACH, WILL CONTINUE TO MONITOR.
[2019-11-07 00:08] VITALS: BP 125/75
[2019-11-07] MEDS: SODIUM CHLORIDE 0.9% 1000ML 1,000 ML IV SCH ×2 (04:04→15:09)
[2019-11-07 04:40] VITALS: BP 133/71
--- NOTE | 2019-11-07 07:00 | NUR ---
BEDSIDE SHIFT REPORT RECEIVED FROM THE MANAGER PRIVACY RN. EDUCATED PT ABOUT FALL PRECAUTIONS. PT VERBALIZED UNDERSTANDING. CALL LIGHT WITH IN EASY REACH. INSTRUCTED PT TO USE CALL LIGHT FOR ALL THE NEEDS. BED IS LOW AND LOCKED. SIDE RAILS X2. BED ALARM IS ON. PT DENIES NEEDS AT THIS TIME.
[2019-11-07] MEDS: INSULIN REGULAR, HUMAN 100 UNIT/1 ML 3ML VIAL SQ SCH ×3 (07:30→16:18)
[2019-11-07 07:53] VITALS: BP 143/89
--- NOTE | 2019-11-07 07:55 | NUR ---
PT IS AGITATED AND REFUSED PHYSICAL ASSESSMENT.
[2019-11-07 07:58] VITALS: BP 143/89
--- NOTE | 2019-11-07 08:47 | NUR ---
[facility] FACILITY DISCHARGE INFORMATION PATIENT HAS BEEN ACCEPTED TO: NAME: [facility] ADDRESS:[id number] ACCEPTING HEAT TREATING BLUER:PATRICIA [place] ACCEPTING MD:EDEL ROOM:65A NURSE CALL REPORT TO: [phone] IMM SIGNED AND OBTAINED (if applicable): IMM THE FOLLOWING DOCUMENTS MUST ACCOMPANY PATIENT FOR TRANSFER: COPIED CHART: PACKET
--- NOTE | 2019-11-07 09:00 | NUR ---
BEDSIDE SWALLOW EVAL PASSED., OKAY TO SWALLOW PER SPEECH PATHOLOGIST.
[2019-11-07] MEDS: CLOPIDOGREL BISULFATE 75 MG TAB PO SCH (09:40)
[2019-11-07] MEDS: FOLIC ACID 1 MG TAB PO SCH (09:40)
[2019-11-07] MEDS: MULTIVITAMINS/MINERALS TAB PO SCH (09:40)
[2019-11-07] MEDS: MEMANTINE 10 MG TAB PO SCH ×2 (09:40→16:11)
--- NOTE | 2019-11-07 11:30 | NUR ---
PAGED DR. HOLLINGSWORTH REGARDING PT D/C PLAN. LEFT MESSAGE .
[2019-11-07 11:49] VITALS: BP 114/87
--- NOTE | 2019-11-07 11:54 | Progress Note ---
DATE: Infectious Disease SUBJECTIVE: The patient was seen and evaluated and discussed with the nurse, no new complaints per nursing staff and informing me that the patient might be leaving today. ALLERGIES: NO KNOWN ALLERGIES. OBJECTIVE: VITAL SIGNS: Temperature 98.3, pulse is 58, respiration 14, blood pressure 148/89. GENERAL: Comfortable in bed, no acute distress. CV: S1, S2. CHEST: Equal expansion, clear to auscultation. ABDOMEN: Soft and nontender. No distention. HEENT: Moist. No pallor. No JVD. EXTREMITIES: Moves all. No edema. MEDICATIONS: Medication list reviewed. As far as Infectious Disease point of view, the patient is off antibiotics. LABORATORY STUDIES: White blood cells 9.74, improved from 12.49, hemoglobin 13.5, platelet 117, which is dropping, creatinine is 0.76, improved from 3.14. MICROBIOLOGY: No new microbiology studies available. Previous urine culture, throat culture and blood cultures were negative. RADIOLOGY STUDIES: No new radiology studies available. Previous chest x-ray showed no significant interval changes on 11/05/2019. REVIEW OF SYSTEMS: The patient is comfortable in bed, gets agitated easily. No specific complaints. No nausea, vomiting, fever, chills, chest pain, shortness of breath. ASSESSMENT AND PLAN: A 69-year-old female, who was admitted for altered mental status and sepsis on admission. Microbiology studies all negative. The patient was in acute renal failure, which has improved. Leukocytosis is improved. No fever. Clinically, no acute distress. Other medical conditions includin. Dementia. 2. Coronary artery disease. 3. Diabetes mellitus type 2. 4. Debility. 5. Easily agitated. 6. Continue monitor patient off the antibiotics. Discharge planning per others. Discussed with Dr. Ceja in details. Please refer to the chart for more information. Dictated by Milton Nur PA-C (Al) Chidi Ceja MD /MODL /[id number]
[2019-11-07] MEDS: ACETAMINOPHEN 325 MG TAB PO PRN (14:20)
--- NOTE | 2019-11-07 15:00 | NUR ---
CALL BACK RECEIVED FROM DR. GOPAL. NETTLES TO TRANSFER PT TO [facility]. NO CHANGE IN MEDS PER THE
--- NOTE | 2019-11-07 15:15 | Progress Note ---
DATE: 11/07/2019 GI Progress Report SUBJECTIVE: The patient was able to eat her lunch today. She had some improved appetite today. She also has had speech and swallow evaluation at the bedside, this she clearly passed. No choking or coughing while swallowing. REVIEW OF SYSTEMS: GENERAL: No fever or chills. RESPIRATORY: No cough or expectoration. CVS: No chest pain or palpitation. MEDICATION: Reviewed as per SEP. The patient is no longer on any antibiotic. PHYSICAL EXAMINATION: VITAL SIGNS: Temperature 97.1, pulse 60, respiration 14, blood pressure 114/87, oxygen saturation 96% on room air. GENERAL: Not in any acute distress. HEENT: Oral mucosa is moist. She is still quite agitated, noncooperative. ABDOMEN: Soft, nondistended, nontender. No palpable mass or hernia. Positive bowel sounds. LABORATORY DATA: None drawn today. IMPRESSION: 1. No dysphagia. 2. Anorexia. However, her appetite improved today. 3. Thrombocytopenia, Hematology consult recommended. PLAN: From GI standpoint, patient can be discharged home. No active GI issues. She is 69, not sure if she has had a screening colonoscopy, this can be electively done as an outpatient. Saman Slater MD SA/SANIYA /[id number] MTDD
--- NOTE | 2019-11-07 15:20 | NUR ---
OKAY TO TRANSFER PT TO [facility]IA [facility] PER THE DAUGHTER CLEMENTE MONTEZ. 2 NURSES VERIFIED TELEPHONE CONSENT.
--- NOTE | 2019-11-07 15:43 | NUR ---
CALLED SON AND DAUGHTER PER THE PT REQUEST. BOTH SON AND DAUGHTER ( POPPY AND CLEMENTE) AGREED WITH D/C PLAN. PT ALSO SPOKE TO SON AND DAUGHTER. PT VERBALIZED UNDERSTANDING OF THE D/C PLAN. PT DENIED FURTHER NEEDS
--- NOTE | 2019-11-07 15:51 | NUR ---
[facility] TO D/C PT PER DR. HOLLINGSWORTH, DR. PRADO AND BERTHA KING
[2019-11-07 15:55] VITALS: BP 155/96
--- NOTE | 2019-11-07 17:10 | NUR ---
PT DISCHARGED TO [facility] PER DR. HOLLINGSWORTH. TELE AND IV REMOVED. PRESSURE DRESSING APPLIED. DISCHARGE INSTRUCTIONS GIVEN AND PT VERBALIZED UNDERSTANDING. TRANFER REPORT GIVEN TO SELAM DESIR. PT DENIED FURTHER NEEDS.
--- NOTE | 2019-11-08 20:25 | Discharge Summary ---
HOSPITAL COURSE: A 69-year-old female patient, admitted with hypoxia, shortness of breath, vomiting, and patient has a left lower lobe atelectasis. She was given antibiotic, the patient's symptoms started to improve. She was having chronic dysphagia, vomiting, and also she was confused. She has dementia. She had a CT chest showed consistent with remote granulomatous disease. On admission, white count was 12.2. Urine showed moderate wbc's, moderate nitrites. She was treated for possible urinary tract infection and aspiration. The patient was counseled by Speech therapy, she was able to swallow without any difficulty. She was discharged to residential back. DISCHARGE DIAGNOSES: 1. Urinary tract infection. 2. Possible aspiration with hypoxia, improved. 3. Altered mental status. 4. Dementia. MD EMILY Taylor/MODL /[id number]
== END 2019-11-07 17:08 | DRG 871 ==
LOC: ER 20:48 → ERHOLD 21:46 → MED/SURG2 23:58
PROVIDERS: ADMIT Internal Medicine; ATTEND Internal Medicine
DX: A41.9 Sepsis, unspecified organism (principal); J69.0 Pneumonitis due to inhalation of food and vomit; N39.0 Urinary tract infection, site not specified; N17.9 Acute kidney failure, unspecified; Z68.1 Body mass index [BMI] 19.9 or less, adult; F05 Delirium due to known physiological condition; R09.02 Hypoxemia; I25.10 Atherosclerotic heart disease of native coronary artery without angina pectoris; E11.9 Type 2 diabetes mellitus without complications; I10 Essential (primary) hypertension; Z95.1 Presence of aortocoronary bypass graft; E11.40 Type 2 diabetes mellitus with diabetic neuropathy, unspecified; Z79.4 Long term (current) use of insulin; R63.0 Anorexia; D69.6 Thrombocytopenia, unspecified; Z86.73 Personal history of transient ischemic attack (TIA), and cerebral infarction without residual deficits; R91.1 Solitary pulmonary nodule; G30.9 Alzheimer's disease, unspecified; F02.80 Dementia in other diseases classified elsewhere, unspecified severity, without behavioral disturbance, psychotic disturbance, mood disturbance, and anxiety
CPT/HCPCS: 36415; 71045; 71250; 76770; 80048; 80053; 81001; 82550; 82553; 82948; 83518; 83605; 83880; 84484; 85025; 87040; 87070; 87086; 87400; 93005; 99285; J2543; J7030